=== PATIENT | male | born 1950 | race Caucasian/White ===

== ENCOUNTER 2020-07-21 10:32 | Emergency (ER) | payer OTHER ==
[~2020-07-21] VITALS: Ht 180.3 cm; Wt 95.3 kg
[2020-07-21] MEDS ORDERED: LEVOTHYROXINE25 MC1 PO (10:43)
[2020-07-21] MEDS ORDERED: BLOOD PRESSURE PO (10:44)
[2020-07-21] MEDS ORDERED: BACTRIM DS TAB1 EAC1 PO (10:46)
[2020-07-21] MEDS ORDERED: HYDROCODON-ACE1 EAC7 PO (11:56)
[2020-07-21 12:03] VITALS: BP 144/79
== END 2020-07-21 12:04 | disposition home or self-care (01) ==
LOC: M.ERS 10:32
DX: S81.822A Laceration with foreign body, left lower leg, initial encounter (principal); E03.9 Hypothyroidism, unspecified; I10 Essential (primary) hypertension; J45.909 Unspecified asthma, uncomplicated; Z88.0 Allergy status to penicillin; W18.39XA Other fall on same level, initial encounter; Y93.89 Activity, other specified; Y92.89 Other specified places as the place of occurrence of the external cause; Y99.8 Other external cause status

== ENCOUNTER 2020-07-30 12:05 | Emergency (ER) | payer OTHER ==
[~2020-07-30] VITALS: Ht 177.8 cm; Wt 95.3 kg
[~2020-07-30 12:05] MED LIST: BACTRIM DS TAB1 EAC1 PO; BLOOD PRESSURE PO; HYDROCODON-ACE1 EAC7 PO; LEVOTHYROXINE25 MC1 PO
[2020-07-30] MEDS ORDERED: LISINOPRIL20 MG PO (12:25)
[2020-07-30] MEDS ORDERED: LEVOTHYROXINE25 MC1 PO (12:25)
[2020-07-30 12:58] VITALS: BP 140/98
== END 2020-07-30 12:58 | disposition home or self-care (01) ==
LOC: M.ERS 12:05
DX: S81.812D Laceration without foreign body, left lower leg, subsequent encounter (principal); I10 Essential (primary) hypertension; Z76.0 Encounter for issue of repeat prescription; E03.9 Hypothyroidism, unspecified; J45.909 Unspecified asthma, uncomplicated; Z88.0 Allergy status to penicillin; X58.XXXD Exposure to other specified factors, subsequent encounter